=== PATIENT | male | born 1940 | race Caucasian/White ===

== ENCOUNTER 2017-03-06 12:45 | Emergency (ER) | payer MEDICARE, BC ==
[2017-03-06 13:10] VITALS: BP 149/76
--- NOTE | 2017-03-06 13:25 | UC ---
General HPI - HPI Summary HPI Summary: Pt was walking up stairs on Tuesday & suddenly had sharp chest & upper abdominal pain. Pain has faded slightly since then w/ tylenol. It persists but is more dull & has spread more to left chest & neck area. Intermittent chest pressure since then. [ End ] - History of Current Complaint Chief Complaint: UCChestPain Stated Complaint: CONGESTION,CHEST PAIN Time Seen by Provider: 03/06/17 13:19 Hx Obtained From: Patient Onset/Duration: Sudden Onset Timing: Intermittent Episodes Lasting: Onset Severity: Moderate Current Severity: Moderate - Allergy/Home Medications Allergies/Adverse Reactions: Allergies Allergy/AdvReac Type Severity Reaction Status Date / Time Penicillins [PCN] Allergy Rash Verified 03/06/17 13:11 Home Medications: Home Medications Loratadine [Claritin 10 MG CAP] 10 mg PO DAILY 03/06/17 [History Confirmed 03/06] PMH/Surg Hx/FS Hx/Imm Hx Previously Healthy: Yes Endocrine History Of: Denies: Diabetes, Thyroid Disease, Hyperthyroidism, Hypothyroidism, Dyslipidemia Cardiovascular History Of: Reports: Hypertension Denies: Cardiac Disorders, Pacemaker/ICD, Myocardial Infarction, Congestive Heart Failure, Atrial Fibrillation, Deep Vein Thrombosis, Bleeding Disorders Respiratory History Of: Denies: COPD, Asthma, Bronchitis, Pneumonia, Pulmonary Embolism GI/ History Of: Denies: Gastroesophageal Reflux, Ulcer, Gastrointestinal Bleed, Gall Bladder Disease, Kidney Stones, Diverticulitis, Renal Disease, Urosepsis Neurological History Of: Denies: TIA, CVA, Dementia, Seizures, Migraine Psychological History Of: Denies: Anxiety, Depression, Bipolar Disorder, Schizophrenia, Post Traumatic Stress Disorder Cancer History Of: Denies: Lung Cancer, Colorectal Cancer, Breast Cancer, Prostate Cancer, Cervical Cancer - Surgical History Surgical History: Yes Surgery Procedure, Year, and Place: Bilateral Cataract Extractions, 2016, [place]; Left Inguinal Herniorrhapy x 2, ~2012 ~2009, [place]; Left Ankle Fusion ([place]); L4 L5 Laminectomy; Right TKA; Sinus Surgeries x 4; Right Second Hammer Toe - Family History Known Family History: Positive: Hypertension, Diabetes - Social History Occupation: Retired Lives: With Family Alcohol Use: None Substance Use Type: None Smoking Status (MU): Former Smoker - Immunization History Most Recent Influenza Vaccination: July 2016 Most Recent Pneumonia Vaccination: 10/2014 Review of Systems Constitutional: Negative Skin: Negative Eyes: Negative ENT: Negative Respiratory: Shortness Of Breath Cardiovascular: Chest Pain Gastrointestinal: Abdominal Pain Genitourinary: Negative Motor: Negative Neurovascular: Negative Musculoskeletal: Negative Neurological: Negative Psychological: Negative All Other Systems Reviewed And Are Negative: Yes Physical Exam Triage Information Reviewed: Yes Appearance: Well-Appearing, No Pain Distress, Well-Nourished Vital Signs: Initial Vital Signs Temp 98.5 F 03/06/17 12:51 Pulse 67 03/06/17 12:51 Resp 16 03/06/17 12:51 BP 149/76 03/06/17 12:51 Pulse Ox 100 03/06/17 12:51 Vital Signs Reviewed: Yes Eye Exam: Normal ENT Exam: Normal Dental Exam: Normal Neck exam: Normal Neck: Positive: 1 Respiratory Exam: Normal Cardiovascular Exam: Normal Abdominal Exam: Normal Musculoskeletal Exam: Normal Neurological Exam: Normal Psychological Exam: Normal Skin Exam: Normal Course/Dx - Course Course Of Treatment: Somewhat poor historian. Atypical vague chest pressure that wraps around the lower chest and in to the back that came on with exertion. He needs higher level of care / labs to r/o NH and Dr Mills and I spoke at 1:40pm and they will go by car. - Differential Dx - Multi-Symptom Differential Diagnoses: Cardiac Ischemia Provider Diagnoses: atypical chest pain Discharge - Discharge Plan Condition: Fair Disposition: [facility] Patient Education Materials: Chest Pain (ED) Referrals: Moreno Newton DO [Primary Care Provider] - Additional Instructions: Dr Mills and I spoke and you will directly to [facility] ED for evaluation.
== END 2017-03-06 13:58 | disposition left against medical advice (07) ==
LOC: UCCORT 12:45
DX: I10 Essential (primary) hypertension (principal); Z88.0 Allergy status to penicillin
CPT/HCPCS: 93005; 99212; G0463